=== PATIENT | female | born 1940 | race Caucasian/White ===

== ENCOUNTER → 2017-07-20 | Outpatient (CLI) | payer OTHER, BC ==
[~2017-07-20] MED LIST: ACET1TAB84 PO; ASPI-232 PO; ATEN50TA PO; CHOL100010 PO; GLIM4TAB2 PO; HYDR25TA4 PO; IBUP1CAP9 PO; LOSA1TAB38 PO; REPA0.5T PO
--- NOTE | 2017-07-21 13:42 | MAMMOGRAPHY REPORT ---
BILATERAL DIGITAL SCREENING MAMMOGRAM TOMOSYNTHESIS WITH CAD: 07/20/2017 CLINICAL HISTORY: Routine screening. Patient has no complaints. TECHNIQUE: Breast tomosynthesis in addition to standard 2D mammography was performed. Current study was also evaluated with a Computer Aided Detection (CAD) system. Bilateral CC and MLO 2-D and tomosy nthesis images were obtained. COMPARISON: Comparison is made to exams dated: 07/13/2016 mammogram, 01/08/2016 mammogram, 07/10/2015 mamm ogram, 04/09/2015 mammogram, 09/04/2014 ultrasound biopsy, and 09/04/2014 mammogram - [facility]. BREAST COMPOSITION: The tissue of both breasts is heterogeneously dense, which may obscure small mas ses. FINDINGS: There are newly visualized calcifications within the right superior posterior breast overlying the pe ctoralis muscle seen on the MLO view only, for which spot magnification views are recommended for fur ther evaluation. The remainder of both breasts are stable compared to prior exams, without suspicious masses, calcific ations, or areas of nonsurgical architectural distortion noted. There are stable postsurgical changes in bilateral breasts from prior lumpectomies. Mild diffuse bilateral skin thickening is stable and likely represents sequela of prior radiation therapy. Other bilateral benign-appearing calcification s are not significantly changed. A biopsy marker clip is again noted in the right upper inner quadra nt. IMPRESSION: ACR BI-RADS CATEGORY 0: INCOMPLETE EVALUATION: NEED ADDITIONAL IMAGING EVALUATION Right breast calcifications, for which additional imaging evaluation is recommended. The patient chauncey l be called to schedule an appointment. Approximately 10% of breast cancers are not detected with mammography. A negative mammographic report should not delay biopsy if a clinically suggestive mass is present. Stephany Nielsen M.D. /:07/20/2017 16:34:13 Resident Medical Officer: Rachel Chavis M, [facility] letter sent: Addl Imaging 0 BI-RADS Code: ACR BI-RADS Category 0: Incomplete Evaluation: Need Additional Imaging Evaluation
== END | disposition home or self-care (01) ==
LOC: C.MAMM 15:22
PROVIDERS: ATTEND Family Medicine
DX: Z12.31 Encounter for screening mammogram for malignant neoplasm of breast (principal); R92.1 Mammographic calcification found on diagnostic imaging of breast; Z85.3 Personal history of malignant neoplasm of breast

== ENCOUNTER → 2017-07-20 | Outpatient (CLI) | payer OTHER, BC ==
[2016-07-07 14:53] VITALS: BP 129/83; PULSE 75
[2017-07-20 14:12] VITALS: BP 96/61; PULSE 88; TEMP 37.1; O2SAT 98
--- NOTE | 2017-07-20 15:07 | Radiation Oncology Follow-Up ---
Radiation Oncology Follow-Up Date of Visit Jul 20, 2017. Reason For Visit Annual follow-up Radiation Completion Date 01/27/15 Diagnosis (1) Breast cancer Status: Resolved Onset Date: 09/04/2014 Stage: l (A) Permanent Comment: Status post left breast carcinoma status post lumpectomy followed by radiation 1995 Abnormal right breast mammogram with positive biopsy Status post right partial mastectomy and sentinel lymph node biopsy Pathologic stage [id number] estrogen receptor negative, progesterone receptor positive, HER-2/leif negative. Status post completion of radiation therapy 01/27/2015 received 6120 cGy Last Edited By: Bharati Robbins on Jul 20, 2017 15:06 History of Present Illness 76-year-old lady is referred to us after undergoing right partial mastectomy and sentinel node procedure for what turned out to be a high-grade invasive ductal carcinoma that was initially found on screening mammogram. The patient had not appreciated a lump in her right breast. The patient has a history of contralateral breast cancer that was treated with lumpectomy and radiation. The radiation was done here and at [facility]. She completed her radiation here and knows our oncologist. The patient most recently underwent procedure as noted by Dr. Maciel here at [facility]. She underwent her surgery on 10/08/2014 and has healed well from that procedure. The pathology did reveal a 7 mm high-grade invasive ductal carcinoma. The margins of her resection were rendered negative. Her sentinel lymph node procedure was negative. Her tumor was ER was negative /CO positive, ASA1nsn negative. The patient's final stage was stage I (T1bN0). In talking with the patient she is cosmetically pleased with her contralateral left breast treatment and expects the same results on her right. The patient is also scheduled to see Dr. Mccarty in view of the tumors pathology. The 7 mm tumor was felt to be high-grade. There was no lymphovascular invasion seen on final pathology from that procedure. The tumor also did not demonstrate perineural invasion, it was high-grade hormone sensitive. She completed radiation therapy 01/27/2015 received 6120 cGy Interim History She's been doing well over this past year. She is noted no changes to her breast. She's noticed no masses or tenderness no change in the axilla. She's had no swelling of her arm. She had a mammogram last year on 07/13/2016. This showed expected post treatment changes within each breast. There was no mammographic evidence of malignancy. A one-year screening mammogram was recommended. This was given BI-RADS Category 2. She is scheduled for recheck mammogram today. She is followed closely by her primary care physician. She is happy to report that her bladder pressure is better controlled. She has had adjustments in her medications for diabetes. She is better tolerating her metformin. She continues to have paresthesias. These are unchanged from previous. She relates these to diabetic neuropathy. Allergies Coded Allergies: Estrogens (Unverified Allergy, Unknown, unknown, 11/05/14) Iodinated Diagnostic Agents (Unverified Allergy, Unknown, unknown, ) Simvastatin (Unverified Allergy, Unknown, unknown, 11/05/14) Statins (Unverified Allergy, Unknown, unknown, 11/05/14) Home Medications Scheduled Aspirin (Aspir-81), 1 TAB PO DAILY Atenolol (Tenormin), 50 MG PO DAILY Cholecalciferol (Vitamin D), 2,000 INTER.UNIT PO DAILY Glimepiride (Glimepiride), 1 TAB PO DAILY Hydrochlorothiazide (Hctz), 25 MG PO DAILY Losartan Potassium (Cozaar), 100 MG PO DAILY Repaglinide (Prandin), 0.5 MG PO AC Scheduled PRN Ibuprofen (Ibuprofen), 800 MG PO BID PRN for Pain Review of Systems Gastrointestinal: Symptoms: WNL GI Comments: Admits to waves of nausea of uncertain cause; Oral: Symptoms: No Problems Other Oral Symptoms: occ difficulty swallowing Respiratory: Symptoms: Dry Cough Respiratory Comments: Patient coughs until she gags - then feels better - chronic Other Respiratory: Gets "coughing spells" until she gags - uncertain of cause;Not new to pt Urinary: Symptoms: WNL Comments: nocturia times 2-3 Skin: Symptoms: No Problems Other Skin Symptoms: skin is dry Breast: Right Upper Arm Measurement: 38.0 Right Mid Arm Measurement: 25.5 Right Wrist Measurement: 16.5 Left Upper Arm Measurement: 35.5 Left Mid Arm Measurement: 25.0 Left Wrist Measurement: 17.0 Arm Dominence: Right Patient Cosmetic Evaluation: Excellent Staff Cosmetic Evalaluation: Excellent Physical Exam Vital Signs Date Time Temp Pulse Resp B/P (MAP) Pulse Ox O2 Delivery O2 Flow Rate FiO2 07/20/17 14:12 37.1 88 20 96/61 98 Pain: Side: Bilateral Pain Location: None Patient Pain Scale: 0 - 10 Initial Pain Intensity: 0.0 Additional Comments: In the evenings gets occaisonal stabbing pain in rigth breast - has to hold General Appearance: no apparent distress Eyes: normal inspection, EOMI ENT: normal ENT inspection, hearing grossly normal Neck: no adenopathy, no JVD Respiratory/Chest: lungs clear, no respiratory distress, no accessory muscle use Breast: Breast examination reveals well-healed incisions of the left breast. There are no masses or tenderness no axillary adenopathy. She has no telangiectasia. There are no skin retractions or nipple changes. There is no edema. On the right she has well-healed incisions. She does continue to have some slight edema of the lower inner quadrant of the breast. There are no masses or tenderness and no axillary adenopathy. She has no telangiectasia. There are no nipple changes or skin retractions. Using the Desmet score cosmesis she has a good outcome. Cardiovascular: regular rate, rhythm, no gallop, no murmur Abdomen: non tender, soft, no organomegaly Extremities: no pedal edema Neurologic/Psychiatric: no motor/sensory deficits, alert, normal mood/affect Skin: warm/dry Additional Studies Patient: ROSA M SINGLETARY [facility] Rec: [id number] Address1: [address] [place] [address] Address2: [facility] ID: [id number] Date: 1940 Sex: F Ref Phy: Att Phy: Patel Marmolejo M.D. [place] Phy: Rick Montez D.O. Inter Phy: Cande French MD [facility] Zip: [place] [address] SC: [id number] Report #: [id number] [employer] Brake Coupler: SUDHEER Diagnosis: 6 MO F/U BILATERAL FOR STABILITY Service Date: 07/13/16 MNE: [id number] Ordering Dr: Bharati Robbins PA-C CC: Bharati Robbins PA-C CONF: DICTATED BY: Cande French MD MAMMOGRAPHY REPORT BILATERAL DIGITAL DIAGNOSTIC MAMMOGRAM 3D/2D WITH CAD: 07/13/2016 CLINICAL HISTORY: 75-year-old female presents for annual bilateral mammography. Nearly two-year follow-up status post treatment for right breast cancer. History of remote left breast cancer. Comparison is made to exams dated: 01/08/2016 mammogram, 07/10/2015 mammogram, 2014 mammogram, 09/04/2014 mammogram, 08/14/2014 ultrasound, and 06/20/2013 mammogram - [facility]. FINDINGS: Bilateral CC and MLO 2-D digital and tomosynthesis images, repeat left CC views were obtained. The tissue of both breasts is heterogeneously dense, which may obscure small masses. Current study was also evaluated with a Computer Aided Detection (CAD) system. An asymmetry in the lateral posterior left breast on the initial CC projection effaces on the repeat CC view, suggesting it represented normal overlapping fibrolinear glandular tissue. There is stable expected architectural distortion in the upper outer posterior left breast, and central right breast, at the site of previous surgeries. Surgical clips remain in place on the left and there are scattered benign coarse calcifications bilaterally. There are rodlike secretory calcifications in the right breast and a stable arben-shaped metallic biopsy marker also in the right breast. There are mild vascular calcifications. Diffuse right greater than left skin thickening and trabecular edema, likely secondary to previous therapy. No new suspicious mass, architectural distortion or cluster of microcalcifications is seen. IMPRESSION: ACR BI-RADS CATEGORY 2: BENIGN Expected post treatment changes within each breast. There is no mammographic evidence of malignancy. A 1 year screening mammogram is recommended. The patient has been verbally notified of the results. Approximately 10% of breast cancers are not detected with mammography. A negative mammographic report should not delay biopsy if a clinically suggestive mass is present. Cande French M.D. ay/:07/18/2016 10:18:13 Production Machine Computer Operator: Lani Bush, [facility] letter sent: Normal 1/2 BI-RADS Code: ACR BI-RADS Category 2: Benign Dictated by: Cande French MD Signed by: Cande French MD Assessment & Plan Plan: She'll have her yearly mammogram today. She continues regular follow-up with her primary care physician. We asked her to return to our office in 1 year. She may call if she has any questions or concerns in the interim. Total Time In Follow-Up I spent 20 minutes speaking to the patient performing examination. I spent 15 minutes reviewing information completing this note. Copy To Aleln Laird Problem Qualifiers (1) Breast cancer: Estrogen receptor status: negative Patient sex: female Laterality: right
== END | disposition home or self-care (01) ==
LOC: C.ONC 13:57
PROVIDERS: ATTEND Physician Assistant Medical
DX: Z08 Encounter for follow-up examination after completed treatment for malignant neoplasm (principal); Z92.3 Personal history of irradiation; Z85.3 Personal history of malignant neoplasm of breast

== ENCOUNTER → 2017-08-08 | Outpatient (CLI) | payer OTHER, BC ==
[~2017-08-08] MED LIST changes: -ACET1TAB84 PO
--- NOTE | 2017-08-10 13:55 | MAMMOGRAPHY REPORT ---
UNILATERAL RIGHT DIGITAL DIAGNOSTIC MAMMOGRAM: 08/08/2017 CLINICAL HISTORY: 76 year-old woman with a personal history of bilateral breast cancer called back fr om screening mammography for possible new microcalcifications in the superior posterior right breast, projecting over the pectoralis muscle. TECHNIQUE: Spot magnification right ML, full-field right MLO and exaggerated lateral CC views were o btained. COMPARISON: Comparison is made to exams dated: 07/20/2017 mammogram, 01/08/2016 mammogram, 07/10/2015 wen mogram, 04/09/2015 mammogram, 07/13/2016 mammogram, and 09/04/2014 ultrasound biopsy - [facility]. BREAST COMPOSITION: The tissue of the right breast is heterogeneously dense, which may obscure small masses. FINDINGS: There are loosely grouped somewhat coarse calcifications projecting over the right pectora lis muscle on the spot magnification ML views spanning approximately 4 x 1 cm. These are not identif ied in the opposite CC projection including an exaggerated lateral CC view. No associated asymmetry, mass or architectural distortion. When comparing back to prior available mammograms, calcifications were not previously identified in this area. Based on the prior right MLO tomosynthesis images the do not correspond to skin to suggest dermal origin. Although they could represent benign calcificati ons due to prior radiation, a short interval follow-up right diagnostic mammogram is recommended to e nsure stability in 6 months. IMPRESSION: ACR-BI-RADS CATEGORY 3: PROBABLY BENIGN New loosely grouped somewhat coarse calcifications measuring 4 x 1 cm in the far superior and posteri or right breast near the axilla may represent benign calcifications due to prior radiation therapy. However, given the interval development, a short interval follow-up right diagnostic mammogram includ ing spot magnification views is recommended to ensure stability in 6 months. These results and recommendations were discussed with the patient at the time of the exam. Approximately 10% of breast cancers are not detected with mammography. A negative mammographic report should not delay biopsy if a clinically suggestive mass is present. Cande French M.D. ay/:08/09/2017 14:27:01 Manager House: Stephany VALLEJO)(Antoni), [facility] letter sent: Follow Up Recommended 3 BI-RADS Code: ACR-BI-RADS Category 3: Probably Benign
== END | disposition home or self-care (01) ==
LOC: C.MAMM 13:56
PROVIDERS: ATTEND Family Medicine
DX: R92.2 Inconclusive mammogram (principal); Z85.3 Personal history of malignant neoplasm of breast

== ENCOUNTER → 2018-02-06 | Outpatient (CLI) | payer OTHER, BC ==
--- NOTE | 2018-02-07 07:58 | MAMMOGRAPHY REPORT ---
UNILATERAL RIGHT DIGITAL DIAGNOSTIC MAMMOGRAM TOMOSYNTHESIS WITH CAD: 02/06/2018 CLINICAL HISTORY: 77-year-old woman with a personal history of right breast cancer status post treatm ent, presents for follow-up of calcifications in the far superior and posterior right breast projecti ng over the pectoralis muscle. TECHNIQUE: Right breast tomosynthesis in addition to standard 2D mammography was performed. Current study was also evaluated with a Computer Aided Detection (CAD) system. A spot magnification right M L view was also obtained. COMPARISON: Comparison is made to exams dated: 08/08/2017 mammogram, 07/20/2017 mammogram, 07/13/2016 ma mmogram, 01/08/2016 mammogram, 07/10/2015 mammogram, and 04/09/2015 mammogram - [facility] BREAST COMPOSITION: There are scattered areas of fibroglandular density in the right breast. FINDINGS: There is mild diffuse skin thickening and trabecular edema of the right breast. The skin thickening may be slightly decreased comparing to prior mammograms. There is stable focal asymmetry and associated architectural distortion in the 8:00 to 9:00 right breast, at the site of prior lumpec nicole. A stable arben-shaped biopsy marker clip in the upper inner right breast. There are benign-appe aring linear calcifications, rim calcifications and vascular calcifications. There are somewhat coarse loosely grouped calcifications in the superior posterior right breast proje cting over the pectoralis muscle on the MLO and spot magnification ML views. Although positioning is slightly different comparing to the prior exams, the calcifications do not appear increased in numbe r and are somewhat less conspicuous comparing to the prior mammograms. Another short interval follow -up diagnostic mammogram to include repeat spot magnification views is recommended to ensure longer s tability. The patient will be due for annual left mammography at that time. IMPRESSION: ACR-BI-RADS CATEGORY 3: PROBABLY BENIGN The somewhat coarse loosely grouped calcifications in the superior, posterior right breast projecting over the pectoralis muscle do not appear significantly increased comparing to prior spot magnificati on views. Given that they were newly visualized comparing to more remote prior mammograms another sh ort interval follow-up right diagnostic mammogram including spot magnification views is recommended t o ensure longer stability, in approximately 5 months. Annual left mammography will also be due at at time. These results and recommendations were discussed with the patient at the time of the exam. Approximately 10% of breast cancers are not detected with mammography. A negative mammographic report should not delay biopsy if a clinically suggestive mass is present. Cande French M.D. ay/:02/06/2018 14:49:58 Casting Tester: Mary VALLEJO)(Antoni), [facility] letter sent: Follow Up Recommended 3 BI-RADS Code: ACR-BI-RADS Category 3: Probably Benign
== END | disposition home or self-care (01) ==
LOC: C.MAMM 14:11
PROVIDERS: ATTEND Family Medicine Geriatric Medicine
DX: R92.8 Other abnormal and inconclusive findings on diagnostic imaging of breast (principal)